=== PATIENT | female | born 1970 | race Caucasian/White ===

== ENCOUNTER 2017-07-09 06:03 | Day surgery (SDC) | payer OTHER ==
[2017-07-09] MEDS ORDERED: Fentanyl 100 MCG/2 ML VIAL ONE (06:33)
[2017-07-09] MEDS ORDERED: CEFAZOLIN/Water 2 GM/20 ML SYRINGE ONE (06:40)
[2017-07-09] MEDS ORDERED: Midazolam HCl 2 mg/2 ml Vial ONE (07:20)
[2017-07-09] MEDS ORDERED: Lidocaine 1% w/Epinephrine 1:200K 30 ML VIAL ONE (07:58)
[2017-07-09] MEDS ORDERED: Bupivacaine PF 0.5% 30 ML VIAL ONE (08:30)
--- NOTE | 2017-07-09 09:15 | OP ---
DATE OF SERVICE: 07/09/2017 PREOPERATIVE DIAGNOSIS: Right carpal tunnel. POSTOPERATIVE DIAGNOSIS: Right carpal tunnel. PROCEDURE PERFORMED: Open carpal tunnel release with application of volar splint STAFF: Dominic Gamboa M.D. SMELTER LINER: None. ANESTHESIA: [place]ake[place], the patient received a LMA with 10 mL of Marcaine 0.5% without epinephrine. ESTIMATED BLOOD LOSS: Less than 10 mL. TOURNIQUET TIME: 4 minutes at 250 mmHg. ANTIBIOTICS: Ancef 2 grams. IMPLANTS: None. COMPLICATIONS: None. HISTORY OF PRESENT ILLNESS: Mrs. Kimball is a 46-year-old female left-hand dominant, currently incarcerated. She has a history of bilateral hand pain with splinting, had months of pain and desired surgical release. I discussed with patient the risks and benefits of right open carpal tunnel release to include pain, scar, bleeding, infection, damage to vital structures, nerves, arteries, tendon, decreased range of motion or strength, failure of the procedure, continued pain despite surgical intervention. The patient understood these risks and benefits and elected to proceed. PROCEDURE IN DETAIL: Timeout was performed designating the patient's right upper extremity as the operative site based on sight, consents, and markings. After completion of timeout, the patient's right upper extremity was prepped and draped in sterile fashion. Tourniquet was brought up for 4 minutes. An incision was made on the radial aspect of the fourth ray from Iglesias's cardinal line, moving proximally down through skin, fat to fascia. Palmar fascia was transected, we used a hemostat to protect the palmaris brevis and transected the transverse carpal ligament, protecting the nerve at the same time, sharply exposing the nerve, the wrist volar to ensure about a fingerbreadth released to ensure no tethers proximally. I then washed, let the tourniquet down after 4 minutes, controlled bleeding, controlled with cautery. After control bleeding I placed horizontal mattress 4-0 nylon stitches, placed 10 mL of Marcaine 0.5% without epinephrine in the hand. We then washed. Placed a splint on. The patient will follow up with me in 10-14 days. Tylenol #3 for pain. Elevation, ice, move her fingers. MTDD
== END 2017-07-09 10:40 | disposition home or self-care (01) ==
LOC: SDC 06:03
PROVIDERS: ATTEND Orthopaedic Surgery
PROC: 01N50ZZ Release Median Nerve, Open Approach (ICD-10-PCS; principal; 2017-07-09)
DX: G56.03 Carpal tunnel syndrome, bilateral upper limbs (principal); I10 Essential (primary) hypertension; F60.3 Borderline personality disorder; B18.2 Chronic viral hepatitis C; J30.9 Allergic rhinitis, unspecified; Z87.891 Personal history of nicotine dependence; Z79.899 Other long term (current) drug therapy; Z98.51 Tubal ligation status; Z98.890 Other specified postprocedural states
CPT/HCPCS: J2250; J3010; S0020

== ENCOUNTER 2017-07-31 12:12 | Outpatient (CLI) | payer OTHER ==
--- NOTE | 2017-07-31 15:00 | RAD ---
VOIDING CYSTOURETHROGRAM: HISTORY: Incontinence. FINDINGS: A total volume of 1000 cc water-soluble contrast was instilled into the urinary bladder via a cathete r. The bladder demonstrates normal capacity and contour. There is no evidence of vesicoureteral ref lux. Female urethra has a normal appearance during micturition. No evidence of diverticulum. Postvoid re sidual is minimal. IMPRESSION: Normal voiding cystourethrogram. POS: [facility]
[2017-07-31] MEDS ORDERED: ISOVUE-370 76%-LOCM 1 ML ONE (17:24)
== END 2017-07-31 12:13 | disposition home or self-care (01) ==
LOC: RAD 12:12
PROVIDERS: ATTEND Family Medicine
DX: N39.41 Urge incontinence (principal); R35.0 Frequency of micturition
CPT/HCPCS: 51600; 74455

== ENCOUNTER 2017-12-31 07:37 | Day surgery (SDC) | payer OTHER ==
[2017-12-31 08:07] LABS: Hemoglobin 12.7 g/dL (12.0-16.0); Mean Corpuscular HGB CONC 33.7 g/dL (32.0-36.0); Mean Corpuscular Hemoglobin 27.9 pg (27.0-31.0); Mean Corpuscular Volume 82.9 fL (78.0-98.0); Mean Platelet Volume 8.5 fL (7.4-10.4); Platelet Count 189 thou/uL (130-400); RBC Distribution Width 14.4 % (11.5-14.5); Red Blood Cell (RBC) Count 4.55 mill/uL (4.20-5.40); White Blood Cell (WBC) Count 6.7 thou/uL (4.8-10.8)
[2017-12-31] MEDS ORDERED: Lidocaine 1% w/Epinephrine 1:200K 30 ML VIAL ONE (09:10)
[2017-12-31] MEDS ORDERED: Fentanyl 100 MCG/2 ML VIAL ONE (09:18)
[2017-12-31] MEDS ORDERED: Midazolam HCl 2 mg/2 ml Vial ONE (09:18)
[2017-12-31] MEDS ORDERED: CEFAZOLIN/Water 2 GM/20 ML SYRINGE ONE (09:23)
--- NOTE | 2017-12-31 10:48 | OP ---
DATE OF PROCEDURE: 12/31/2017 PREOPERATIVE DIAGNOSIS: Left carpal tunnel syndrome. POSTOPERATIVE DIAGNOSIS: Left carpal tunnel syndrome. PROCEDURE PERFORMED: 1. Open left carpal tunnel release. 2. Short arm splint. STAFF: Dominic Gamboa M.D. CARDIAC SPECIALIST: None. ANESTHESIA: Burrough. The patient received LMA with lidocaine 10 mL. ESTIMATED BLOOD LOSS: 10 mL. TOURNIQUET TIME: 6 minutes at 250 mmHg. ANTIBIOTICS: Ancef. IMPLANTS: None. COMPLICATIONS: None. HISTORY OF PRESENT ILLNESS: Ms. Kimball is a 47-year-old female who had bilateral carpal tunnel, had o pen release. The patient desired for left release. She understood the risks and benefits of surgery to include pain, scar, bleeding, infection, damage to vital structures, decreased range of motion or strength, continued pain despite surgical intervention. The patient understood the risks and benefi ts and elected to proceed. PROCEDURE NOTE: Time-out was performed designating the patient's left upper extremity as the operati ve site based on site, consents and markings. After completion of timeout, the patient's left upper extremity was prepped and draped in sterile fashion. Tourniquet was brought up and left up for a tot al of 6 minutes. An anterior incision was made just on the radial border of the fourth metacarpal pr oximal to Iglesias's cardinal line down through skin distal to the flexor crease, came down the patient 's palmar fascia which I dissected, came through the patient's palmaris brevis, the transverse carpal ligament, exposed the nerve ensured proximally that I had about a fingerbreadth complete release. I washed, let the tourniquet down after 5 minutes, controlled all cautery, placed 4-0 nylon to close t he skin in horizontal mattress sutures. I had a good overall closure, we injected a total of 10 mL of lidocaine some pre and post-incision into the incision, placed her in a volar splint. The patient will follow up with me in 10-14 days for removal of sutures. Will be transitioned back t o another splint at that time.
== END 2017-12-31 11:15 | disposition home or self-care (01) ==
LOC: SDC 07:37
PROVIDERS: ATTEND Orthopaedic Surgery
PROC: 01N50ZZ Release Median Nerve, Open Approach (ICD-10-PCS; principal; 2017-12-31)
DX: G56.02 Carpal tunnel syndrome, left upper limb (principal); I10 Essential (primary) hypertension; B18.2 Chronic viral hepatitis C; Z98.890 Other specified postprocedural states
CPT/HCPCS: 36415; 85027; J2250; J3010

== ENCOUNTER 2018-12-20 08:11 | Outpatient (CLI) | payer OTHER ==
--- NOTE | 2018-12-20 10:43 | ULT ---
RIGHT UPPER QUADRANT ULTRASOUND: INDICATION: Right upper quadrant pain. Hepatitis C. The technologist states that the patient is not NPO which degrades this examination. Gallbladder is imaged and appears unremarkable, although not well distended. No gallstone is identified. The commo n duct is normal caliber. Liver is unremarkable. The pancreas is partially imaged and appears unrem arkable as visualized. The right kidney is unremarkable. IMPRESSION: Nonfasting study limits the exam. No abnormality identified. POS: [facility]
== END 2018-12-20 08:12 | disposition home or self-care (01) ==
LOC: BICULT 08:11
PROVIDERS: ATTEND Family Medicine
DX: B19.20 Unspecified viral hepatitis C without hepatic coma (principal); R10.11 Right upper quadrant pain
CPT/HCPCS: 76705